=== PATIENT | female | born 1945 | race Caucasian/White ===

== ENCOUNTER 2016-12-02 11:49 | Inpatient (IN) | payer OTHER ==
--- NOTE | ~2016-12-02 | CR63 ---
[facility] A Service of [facility] RADIOLOGY TEXT RESULTS PATIENT: JOSE LOPEZ LOCATION: [facility] : 47 UNIT #: [id number] AGE: [address]: Jalen Garay MD SEX: F ORDER DR: [id number] [facility] [address] [address] [facility]. [place], [place] [address] [id number] MR#: [id number] Acc #: [id number] NAME: JOSE LOPEZ : 1945 SEX: F STUDY DATE/TIME: 12/02/2016 22:33 UNIT: [facility] ROOM: [facility] STUDY DESCRIPTION: CR Chest 2 View Attending Physician: Jalen Garay M.D. Ordering Physician: Saúl Mccarthy M.D. Primary Care Physician: Jalen Garay M.D. MEDICAL IMAGING REPORT This report is preliminary unless electronic signature is present EXAM PA and lateral chest INDICATION Hypoxia, shortness of air, elevated D-dimer x5 days. The patient has a VQ scan today. COMPARISON 07/21/2006 FINDINGS A PA and lateral view of the chest were obtained. There is about 6-7 cm area of abnormal density extending upwards from the left hilum most likely representing pneumonia. The rest of the lungs are clear. Heart size is normal and the bones are unremarkable. IMPRESSION 6-7 cm abnormal density extending upwards from the left hilum most likely representing pneumonia. Followup chest x-ray after treatment is recommended. Dictated by... Saúl Mccarthy M.D. THIS IS AN ELECTRONICALLY VERIFIED REPORT Saúl Mccarthy M.D. at 12/03/2016 3:38 AM ARLENE/hunter TD: 12/03/2016 00:13 JOB #: [id number] [facility] A Service of [facility] RADIOLOGY TEXT RESULTS PATIENT: JOSE LOPEZ LOCATION: [facility] : 47 UNIT #: [id number] AGE: [address]: Jalen Garay MD SEX: F ORDER DR: MEDICAL IMAGING REPORT Page 1 of 1 COPY
--- NOTE | ~2016-12-02 | HP ---
Unit #: [id number] #: [id number] Patient: JOSE LOPEZ [id number] [address] [place], [place] [address] [id number] I MR#: [id number] NAME: JOSE LOPEZ. ROOM: 560 Age: 71 Sex: F Admission Date: 12/02/2016 : 1945 Attending Physician: Jalen Garay M.D. Primary Care Physician: Jalen Garay M.D. HISTORY AND PHYSICAL HISTORY OF PRESENT ILLNESS A 71-year-old white female with a history of osteoporosis, osteoarthritis, coronary artery disease, hyperlipidemia, obstructive sleep apnea syndrome, major depressive disorder, hypertension, seen in the office today with four days of nausea, vomiting, diarrhea, dark urine, feverish, cough, myalgias, chest pain on the left with cough, low back pain. In the office we had trouble getting her O2 sats which seemed to range from 83% to 95% on room air. Her weight was down some seven pounds from her last office visit. Temperature was 99. Blood pressure was 118/70. Her exam was fairly unremarkable except for some rhonchi left upper lobe. She was unable to give us a urine specimen and two-view chest x-ray showed what appeared to be a vague but new left upper lobe infiltrate and the patient is admitted for further evaluation and therapy. She was directly admitted to the hospital. She had a temp here of 100.6 according to the nurse although it is not documented. O2 sats are not documented as well. Her white count is 14.4, D-dimer is 926, sodium is 129, potassium 3.4, GFR is 57.5, amylase and lipase were normal. Urinalysis shows 2+ protein with 5 to 10 RBCs and 5 to 10 hyaline casts. ALLERGIES Aspirin and penicillin. MEDICATIONS PRIOR TO ADMISSION 1. Effexor XR 75 mg daily. 2. Pepcid 40 mg daily. 3. Fosamax 70 mg weekly. 4. Lasix 80 mg daily. 5. Lipitor 40 mg daily. 6. Lisinopril 10 mg daily. 7. Vitamin D 2000 units daily. 8. Coreg 12.5 mg b.i.d. 9. Calcium plus D one p.o. daily. 10. I-Caps one p.o. daily. 11. Multivitamin one p.o. daily. 12. CoQ10 200 mg p.o. daily. PAST MEDICAL HISTORY Again, the patient has a history of coronary artery disease, osteoporosis, osteoarthritis, hypertension, obstructive sleep apnea syndrome, depression, hyperlipidemia, venous insufficiency, chronic kidney disease stage 3. SOCIAL HISTORY Unit #: [id number] #: [id number] Patient: JOSE LOPEZ She is retired, single, nonsmoker, nondrinker, no street drug use, although she does have occasional wine. FAMILY HISTORY Family history is noncontributory. REVIEW OF SYSTEMS Review of systems is otherwise unremarkable. PHYSICAL EXAMINATION VITAL SIGNS: Again, she has a temp of 99 degrees, pulse was 54, O2 sats were sort of all over the place but ranged from 83% to 95%, BMI was 31.5, weight 215 pounds, height 69 inches. HEENT: Unremarkable. NECK: Supple, without JVD, bruits, adenopathy or thyromegaly. CHEST: Rhonchi left upper lobe, otherwise clear to auscultation. HEART: Has a regular rate and rhythm without any murmurs, gallops or rubs. ABDOMEN: Abdomen was soft, nontender and nondistended, with positive bowel sounds and no hepatosplenomegaly. EXTREMITIES: Show no cyanosis, clubbing or edema. GENITOURINARY: Deferred. ANO-RECTAL: Deferred. NEUROLOGIC: Exam is grossly intact. DIAGNOSTIC STUDIES LABORATORY: Values are mentioned above. IMPRESSION 1. Nausea, vomiting and diarrhea of unclear etiology. 2. Dehydration. 3. Hyponatremia. 4. Hypokalemia. 5. Elevated D-dimer. 6. Osteoporosis. 7. Osteoarthritis. 8. Obstructive sleep apnea syndrome. 9. Major depressive disorder. 10. Hyperlipidemia. 11. Coronary artery disease. PLAN 1. N.p.o. except for ice chips 2. CT scan of the abdomen and pelvis without dye. 3. V/Q scan. 4. Magnesium level. 5. Replace potassium and magnesium per protocol. 6. IV Pepcid. 7. IV Zofran p.r.n. 8. IV antibiotics till cultures are back. Blood cultures have been drawn. 9. Bilateral lower extremity SCDs for DVT prophylaxis. 10. Further evaluation pending results of the above. Unit #: [id number] #: [id number] Patient: JOSE LOPEZ Dictated by Jordana Barnes/eulalio TD: 12/02/2016 18:43 JOB #: [id number] HISTORY AND PHYSICAL Page 1 of 1 X Jalen Garay MD X HISTORY AND PHYSICAL
--- NOTE | ~2016-12-02 | CR63 ---
[facility] A Service of [facility] & [facility] RADIOLOGY TEXT RESULTS PATIENT: JOSE LOPEZ LOCATION: [facility] 560-01 : 47 UNIT #: [id number] AGE: [address]: Jalen Garay MD SEX: F ORDER DR: [id number] [facility] [address] [facility]. [place], [place] [address] [id number] I MR#: [id number] Acc #: [id number] NAME: JOSE LOPEZ : 1945 SEX: F STUDY DATE/TIME: 12/05/2016 0959 UNIT: [facility] ROOM: [facility] STUDY DESCRIPTION: CR Chest 2 View Attending Physician: Jalen Garay M.D. Ordering Physician: Jalen Garay M.D. Primary Care Physician: Jalen Garay M.D. MEDICAL IMAGING REPORT This report is preliminary unless electronic signature is present EXAM Chest, 2 views, 12/05/2016, 0959 hours. CLINICAL HISTORY Shortness of air, cough, pneumonia for 1 week. COMPARISON 12/02/2016 FINDINGS Upright PA and lateral views of the chest demonstrate mild cardiomegaly and a mildly tortuous aorta. There is increase in airspace density in the left upper lung with increase or new small left pleural effusion. The right lung is clear. IMPRESSION Left lower lobe airspace density is clearly increased since 11/22/2016 with development of a small left pleural effusion, best seen on the lateral view. Right lung is clear. STAT * RESULT Dictated by... Tamika Malhotra M.D. THIS IS AN ELECTRONICALLY VERIFIED REPORT Tamika Malhotra M.D. at 12/05/2016 12:14 PM RANDY/arnulfo TD: 12/05/2016 10:45 JOB #: [id number] [facility] A Service of [facility] & [facility] RADIOLOGY TEXT RESULTS PATIENT: JOES LOPEZ LOCATION: [facility] 560-01 : 47 UNIT #: [id number] AGE: [address]: Jalen Garay MD SEX: F ORDER DR: MEDICAL IMAGING REPORT Page 1 of 1 COPY
--- NOTE | ~2016-12-02 | NM69 ---
[facility] A Service of [facility] & [facility] RADIOLOGY TEXT RESULTS PATIENT: JOSE LOPEZ LOCATION: [facility] 560-01 : 47 UNIT #: [id number] AGE: [address]: Jalen Garay MD SEX: F ORDER DR: [id number] [facility] [address] [place] [facility]. [place], [place] [address] [id number] I MR#: [id number] Acc #: [id number] NAME: JOSE LOPEZ. : 1945 SEX: F STUDY DATE/TIME: 12/02/2016 21:44 UNIT: [facility] ROOM: [facility] STUDY DESCRIPTION: NM Pulm Vent and Perf Attending Physician: Jalen Garay M.D. Ordering Physician: Jalen Garay M.D. Primary Care Physician: Jalen Garay M.D. MEDICAL IMAGING REPORT This report is preliminary unless electronic signature is present REVISED REPORT SEE ADDENDUM EXAM Ventilation-perfusion study of the lungs INDICATIONS Hypoxia today with elevated D-dimer. Coughing spells. There is a comparison chest x-ray done the same day. FINDINGS The ventilation study was done with 32.7 mCi of Tc-99m DTPA in aerosol form and the perfusion study was done with 5.2 mCi of Tc-99m MAA. The ventilation-perfusion images show matched decreased ventilation and perfusion in the left upper lobe, and there is a soft tissue density in that region on the chest x-ray extending upwards from the hilum that measures about 6.5 cm in diameter. The appearance suggests that this is a left upper lobe pneumonia. The rest of the ventilation-perfusion study is normal. This area was clear January 22, [address] scan. IMPRESSION 1. There is a matched ventilation-perfusion defect in the left upper lobe corresponding with abnormal density seen on the chest x-ray. This region of lung was clear on 01/22/16. This most likely represents a pneumonia and clinical correlation is recommended. A mass cannot be completely excluded and I would suggest followup chest x-ray after treatment to show resolution. 2. The rest of the study is normal and this indicates a low probability for pulmonary embolus. [facility] A Service of [facility] & [facility] RADIOLOGY TEXT RESULTS PATIENT: JOSE LOPEZ LOCATION: [facility] 560-01 : 47 UNIT #: [id number] AGE: [address]: Jalen Garay MD SEX: F ORDER DR: Dictated by... Saúl Mccarthy M.D. THIS IS AN ELECTRONICALLY VERIFIED REPORT Saúl Mccarthy M.D. at 12/03/2016 3:38 AM FEL/psc TD: 12/03/2016 00:37 JOB #: [id number] ADDENDUM REPORT ADDENDUM The patient has had symptoms for 5 days, not 1 day. Dictated by... Saúl Mccarthy M.D. THIS IS AN ELECTRONICALLY VERIFIED REPORT Saúl Mccarthy M.D. at 12/05/2016 1:55 PM FEL/ljd TD: 12/03/2016 00:17 JOB #: [id number] CC: Oliver/tasha Please Delete MEDICAL IMAGING REPORT Page 1 of 1 COPY
--- NOTE | ~2016-12-02 | DS ---
Unit #: [id number] #: [id number] Patient: JOSE LOPEZ [id number] [address] [address] [id number] I MR#: [id number] NAME: JOSE LOPEZ. ROOM: 560 Age: 71 Sex: F Admission Date: 12/02/2016 : 1945 Discharge Date: 12/07/2016 Attending Physician: Jalen Garay M.D. Primary Care Physician: Jalen Garay M.D. DISCHARGE SUMMARY PRINCIPAL DISCHARGE DIAGNOSES 1. Acute hypoxic respiratory failure. 2. Community-acquired pneumonia, left upper lobe. 3. Coronary artery disease. 4. Hyperlipidemia. 5. Major depressive disorder. 6. Osteoporosis. 7. Osteoarthritis. 8. Left ventricular dysfunction. 9. Hyponatremia. 10. Hypokalemia. 11. Acute kidney injury. PROCEDURES Midline placement 12/02/16. REASON FOR HOSPITALIZATION The patient is a 71-year-old white female who presented to the office with nausea, vomiting, diarrhea, hypoxemia. Upon further evaluation, was found to have a left upper lobe infiltrate on chest x-ray in the office. Her O2 sats were 83% to 95% on room air. She had lost seven pounds on a previous visit. Temperature was 99, blood pressure 118/70 when the patient was admitted. After the patient was admitted, her white count here was 14.4, D-dimer was 926, sodium 129, potassium 3.4, GFR 57.5. Amylase and lipase were normal. Urinalysis - 2+ protein with 5-10 RBCs and 5-10 hyaline casts. The patient had bilateral SCDs placed. She underwent V/Q scan because of the renal dysfunction which was a low probability for PE. Repeat chest x-ray again showed a left upper lobe pneumonia. She was placed on Zithromax, Rocephin and IV steroids. Blood cultures - no growth. Urine culture - no growth. Potassium replaced. IV fluids started for rehydration and replacement of potassium. Urine for legionella and streptococcal antigen is negative. The patient rapidly improved. Currently, her O2 sats range from 92 to 98% over the past 24 hours off her O2. Her CBC yesterday was completely normal except for a hemoglobin of 10.9. Her BMP yesterday was normal except for a blood sugar of 151. At this point, she is tolerating a regular diet. She is afebrile. Vital signs are stable. Discharged home. Office visit in one week. Healthy heart diet. CURRENT MEDICATIONS 1. Tylenol 650 p.o. q.6 hours p.r.n. for pain or fever. 2. Effexor XR 75 mg daily. 3. Coreg 12.5 mg p.o. b.i.d. 4. Lasix 80 mg p.o. daily. Unit #: [id number] #: [id number] Patient: JOSE LOPEZ 5. Omnicef 300 mg p.o. b.i.d. for an additional five days. 6. Lipitor 40 mg p.o. daily. 7. Lisinopril 10 mg p.o. daily. 8. Pepcid 40 mg p.o. daily. 9. Fosamax 70 mg p.o. weekly. 10. Co Q-10 200 mg p.o. daily. 11. I-Caps, one p.o. daily. 12. Multivitamins, one p.o. daily. 13. Calcium plus D, one p.o. daily. 14. Z-Dangelo, use as directed, dispense #1. 15. Vitamin D 2000 units daily. 16. Prednisone 20 mg p.o. b.i.d. for five days. She will eventually need to have a followup chest x-ray in about six weeks to ensure resolution of the left upper lobe infiltrate. Dictated by... Jalen Garay M.D. NACHO/tomasz TD: 12/09/2016 07:50 JOB #: [id number] DISCHARGE SUMMARY Page 1 of 1 X Jalen Garay MD X DISCHARGE SUMMARY
--- NOTE | ~2016-12-02 | CT4 ---
[facility] A Service of [facility] & [facility] RADIOLOGY TEXT RESULTS PATIENT: JOSE LOPEZ LOCATION: [facility] 560-01 : 47 UNIT #: [id number] AGE: [address]: Jalen Garay MD SEX: F ORDER DR: [id number] [facility] [address] [place], [place] [address] [id number] I MR#: [id number] Acc #: [id number] NAME: JOSE LOPEZ : 1945 SEX: F STUDY DATE/TIME: 12/02/2016 19:28 UNIT: [facility] ROOM: [facility] STUDY DESCRIPTION: CT Abd and Pelv Wo Cont Attending Physician: Jalen Garay M.D. Ordering Physician: Jalen Garay M.D. Primary Care Physician: Jalen Garay M.D. MEDICAL IMAGING REPORT This report is preliminary unless electronic signature is present EXAM CT abdomen and pelvis without contrast, 12/02/2016 1928 hours HISTORY 71-year-old woman with nausea and diarrhea for [address] abdomen and pelvis, 03/04/[address] exam was performed with one or more of the following radiation dose reduction techniques: Automatic exposure control, adjustment of mA and/or kV according to patient size, and iterative reconstruction. FINDINGS Images through the lung bases are clear. There is a very small hiatal hernia slightly increased from 03/04/2012. There is trace left pleural effusion, which is new. Images through the abdomen demonstrate no change in a cyst in the medial segment left lobe of the liver. Liver is normal in size. The spleen is normal. Pancreas, bile ducts are normal. There is no gallstone or gallbladder wall thickening. The adrenal glands are normal. The kidneys demonstrate no mass or stone. Tiny cyst in the lower-pole left kidney seen on prior contrasted CT is difficult to see on this noncontrasted exam. There is no ureterectasis or ureteral calculus. There are pelvic phleboliths present. The stomach is contracted but normal in appearance. There is no small bowel distension or small bowel wall thickening. The terminal ileum and cecum are normal. There is no evidence of appendicitis. There are colonic diverticula present in the descending colon and numerous diverticula in the sigmoid colon without wall thickening or inflammation. [facility] A Service of [facility] & [facility] RADIOLOGY TEXT RESULTS PATIENT: JOSE LOPEZ LOCATION: [facility] 560-01 : [birth year] UNIT #: [id number] AGE: [address]: Jalen Garay MD SEX: F ORDER DR: The bladder is normal. The uterus is surgically absent. I do not discriminate ovaries. IMPRESSION 1. Trace left pleural effusion, new from 2012. 2. Stable liver cyst. 3. Gallbladder and bile ducts are normal, as is the pancreas. 4. Colonic diverticulosis in the descending colon and sigmoid colon without evidence of wall thickening or inflammation. There is no small bowel distension. No evidence of appendicitis. 5. No renal or ureteral calculi. 6. Degenerative disc disease at L5-S1, similar to 2012. Dictated by... Tamika Malhotra M.D. THIS IS AN ELECTRONICALLY VERIFIED REPORT Tamika Malhotra M.D. at 12/03/2016 9:34 AM RANDY/jannette TD: 12/02/2016 22:50 JOB #: [id number] MEDICAL IMAGING REPORT Page 1 of 1 COPY
[~2016-12-02 11:49] MED LIST: BACTRIM DS TABL1 TA1; CALCIUM +D & M1 EACH PO; CALCIUM 500 + D1 TAB PO; EFFEXOR XR PO; EFFEXOR-XR150 MG PO; FOSAMAX PO; FOSAMAX70 MG PO; GLUCOSAMINE CHOND; ICAPS MV TAB1 TAB.EC PO; KEFLEX PO; LORTAB 7.5-5001 TAB PO; MAXZIDE 75/50 T1 TA1 PO; MAXZIDE 75/50 T1 TAB PO; MIRALAX17 G1 PO; MULTI-VIT/MIN P1 TAB PO; MULTIPLE VITAMIN; PERCOCET5/325 PO; STOOL SOFTENER; TOPROL XL PO
[2016-12-02 14:05] LABS: HEMATOCRIT 36.3 % (35.0-45.0); HEMOGLOBIN 12.1 gm/dL (12.0-16.0); MEAN CELL VOLUME 93.6 FL (83-96); MEAN CORPUSCULAR HEMOGLOBIN 31.2 PG (28-34); MEAN CORPUSCULAR HGB CONC 33.3 g/dL (30-36); MEAN PLATELET VOLUME 9.2 FL (6.5-11.5); RED BLOOD COUNT 3.87 X10e (3.90-5.30); RED CELL DISTRIBUTION WIDTH 13.5 % (11.0-15.5); WHITE BLOOD COUNT 14.4 X10e3 (4.0-10.5)
[2016-12-02] MEDS ORDERED: EFFEXOR75 M3 PO (14:09)
[2016-12-02] MEDS ORDERED: PEPCID40 MG PO (14:10)
[2016-12-02] MEDS ORDERED: FOSAMAX70 MG PO (14:10)
[2016-12-02] MEDS ORDERED: LASIX80 MG PO (14:11)
[2016-12-02] MEDS ORDERED: LIPITOR40 MG PO (14:13)
[2016-12-02] MEDS ORDERED: LISINOPRIL10 MG PO (14:14)
[2016-12-02] MEDS ORDERED: VITAMIN D2000 UNIT PO (14:15)
[2016-12-02] MEDS ORDERED: COREG12.5 MG PO (14:15)
[2016-12-02] MEDS ORDERED: CALCIUM + D SO1 EACH PO (14:16)
[2016-12-02] MEDS ORDERED: ICAPS MV TABLE1 EACH PO (14:17)
[2016-12-02] MEDS ORDERED: MULTI VITAMIN1 EACH PO (14:20)
[2016-12-02] MEDS ORDERED: CO Q-10200 MG PO (14:20)
[2016-12-02 14:35] LABS: ALBUMIN SERUM 3.5 g/dL (3.5-5.0); BILIRUBIN,TOTAL 0.9 mg/dL (0.2-2.0); CALCIUM SERUM 8.4 mg/dL (8.4-10.2); GLOM FILT RATE Estimated 57.5 mL/min (>60); POTASSIUM 3.4 mmol/L (3.5-5.1); PROTEIN TOTAL SERUM 7.1 g/dL (6.0-8.3)
[2016-12-02 14:49] LABS: PROCALCITONIN 0.07 NG/ML
[2016-12-02 16:02] LABS: URINE APPEARANCE CLEAR; URINE BILIRUBIN NEG (NEG); URINE BLOOD NEG (NEG); URINE COLOR DK YELLOW; URINE GLUCOSE NEG (NEG); URINE KETONE 1+ (NEG); URINE LEUKOCYTE ESTERASE NEG (NEG); URINE NITRATE NEG (NEG); URINE PROTEIN 2+ (NEG); URINE SPECIFIC GRAVITY 1.023 (1.003-1.035)
[2016-12-02 16:03] LABS: URINE BACTERIA AUWI NEG (NEGATIVE); URINE SQUAMOUS EPITHELIAL CELL OCC /[HPF]
[2016-12-03 05:30] LABS: HEMATOCRIT 34.2 % (35.0-45.0); HEMOGLOBIN 11.5 gm/dL (12.0-16.0); MEAN CELL VOLUME 93.4 FL (83-96); MEAN CORPUSCULAR HEMOGLOBIN 31.4 PG (28-34); MEAN CORPUSCULAR HGB CONC 33.7 g/dL (30-36); MEAN PLATELET VOLUME 9.9 FL (6.5-11.5); RED BLOOD COUNT 3.66 X10e (3.90-5.30); RED CELL DISTRIBUTION WIDTH 13.4 % (11.0-15.5); WHITE BLOOD COUNT 11.6 X10e3 (4.0-10.5)
[2016-12-03 06:12] LABS: CALCIUM SERUM 8.1 mg/dL (8.4-10.2); CREATININE SERUM 0.8 mg/dL (0.6-1.4); GLOM FILT RATE Estimated 75.3 mL/min (>60); MAGNESIUM 2.3 mg/dL (1.6-3.0); POTASSIUM 3.9 mmol/L (3.5-5.1)
[2016-12-04 08:00] LABS: HEMOGLOBIN 10.9 gm/dL (12.0-16.0); MEAN CELL VOLUME 93.4 FL (83-96); MEAN CORPUSCULAR HEMOGLOBIN 30.9 PG (28-34); MEAN CORPUSCULAR HGB CONC 33.1 g/dL (30-36); MEAN PLATELET VOLUME 9.7 FL (6.5-11.5); RED BLOOD COUNT 3.53 X10e (3.90-5.30); RED CELL DISTRIBUTION WIDTH 13.4 % (11.0-15.5); WHITE BLOOD COUNT 9.4 X10e3 (4.0-10.5)
[2016-12-04 08:25] LABS: CALCIUM SERUM 7.7 mg/dL (8.4-10.2); CREATININE SERUM 0.8 mg/dL (0.6-1.4); GLOM FILT RATE Estimated 75.3 mL/min (>60); POTASSIUM 3.4 mmol/L (3.5-5.1)
[2016-12-05 06:06] LABS: HEMATOCRIT 31.6 % (35.0-45.0); HEMOGLOBIN 10.6 gm/dL (12.0-16.0); MEAN CELL VOLUME 93.2 FL (83-96); MEAN CORPUSCULAR HEMOGLOBIN 31.2 PG (28-34); MEAN CORPUSCULAR HGB CONC 33.5 g/dL (30-36); MEAN PLATELET VOLUME 9.5 FL (6.5-11.5); RED BLOOD COUNT 3.39 X10e (3.90-5.30); RED CELL DISTRIBUTION WIDTH 13.5 % (11.0-15.5); WHITE BLOOD COUNT 6.8 X10e3 (4.0-10.5)
[2016-12-05 06:51] LABS: BUN/CREATININE RATIO 7.5; CREATININE SERUM 0.8 mg/dL (0.6-1.4); GLOM FILT RATE Estimated 75.3 mL/min (>60); POTASSIUM 3.9 mmol/L (3.5-5.1)
[2016-12-05 11:32] LABS: LEGIONELLA AG URINE NEG (NEG)
[2016-12-06 07:40] LABS: BASOPHIL% 0.1 % (0-2.5); EOSINOPHIL% 0.1 % (0.0-7.0); HEMATOCRIT 33.4 % (35.0-45.0); HEMOGLOBIN 10.9 gm/dL (12.0-16.0); LYMPHOCYTE# 0.5 X10e3 (1.0-3.5); LYMPHOCYTE% 9.7 % (17.0-45.0); MEAN CELL VOLUME 93.1 FL (83-96); MEAN CORPUSCULAR HEMOGLOBIN 30.5 PG (28-34); MEAN CORPUSCULAR HGB CONC 32.7 g/dL (30-36); MEAN PLATELET VOLUME 9.6 FL (6.5-11.5); MONOCYTE# 0.1 X10e3 (0-1.0); MONOCYTE% 2.1 % (3.0-12.0); NEUTROPHIL# 4.2 X10e3 (1.5-7.1); PLATELET COUNT 251 X10e3 (140-420); RED BLOOD COUNT 3.58 X10e (3.90-5.30); RED CELL DISTRIBUTION WIDTH 13.3 % (11.0-15.5); WHITE BLOOD COUNT 4.8 X10e3 (4.0-10.5)
[2016-12-06 07:42] LABS: DIFF IND NO
[2016-12-06 08:18] LABS: BUN/CREATININE RATIO 15.71; CALCIUM SERUM 8.5 mg/dL (8.4-10.2); CREATININE SERUM 0.7 mg/dL (0.6-1.4); GLOM FILT RATE Estimated 88.4 mL/min (>60); POTASSIUM 3.9 mmol/L (3.5-5.1)
[2016-12-07] MEDS ORDERED: ZITHROMAX1 GM (12:02)
[2016-12-07] MEDS ORDERED: OMNICEF300 M1 PO (12:02)
[2016-12-07] MEDS ORDERED: PREDNISONE PO (12:03)
[2016-12-07] MEDS ORDERED: ACETAMINOPHEN650 M1 PO (12:04)
== END 2016-12-07 13:36 | disposition home or self-care (01) | DRG 193 ==
LOC: C5B 11:49 → UNDOADMOB 13:20 → C5B 13:20
PROVIDERS: Internal Medicine
PROC: 05H533Z Insertion of Infusion Device into Right Subclavian Vein, Percutaneous Approach (ICD-10-PCS; principal; 2016-12-02)
DX: J18.9 Pneumonia, unspecified organism (principal); J96.01 Acute respiratory failure with hypoxia; E87.1 Hypo-osmolality and hyponatremia; Z88.6 Allergy status to analgesic agent; Z88.0 Allergy status to penicillin; I25.10 Atherosclerotic heart disease of native coronary artery without angina pectoris; M81.0 Age-related osteoporosis without current pathological fracture; M19.90 Unspecified osteoarthritis, unspecified site; G47.33 Obstructive sleep apnea (adult) (pediatric); F32.9 Major depressive disorder, single episode, unspecified; E78.5 Hyperlipidemia, unspecified; I12.9 Hypertensive chronic kidney disease with stage 1 through stage 4 chronic kidney disease, or unspecified chronic kidney disease; N18.3 Chronic kidney disease, stage 3 (moderate); E86.0 Dehydration; E87.6 Hypokalemia; I87.2 Venous insufficiency (chronic) (peripheral)
CPT/HCPCS: 71020; 74176; 78582; 80048; 80053; 81003; 82150; 82308; 83690; 83735; 84132; 85025; 85027; 85379; 87040; 87086; 87449; 87899; 94760; A9540; A9567; J0456; J0696; J1650; J2405; J2930

== ENCOUNTER → 2016-12-15 | Outpatient (CLI) | payer OTHER ==
[~2016-12-15] MED LIST changes: +ACETAMINOPHEN650 M1 PO; +CALCIUM + D SO1 EACH PO; +CO Q-10200 MG PO; +COREG12.5 MG PO; +EFFEXOR75 M3 PO; +ICAPS MV TABLE1 EACH PO; +LASIX80 MG PO; +LIPITOR40 MG PO; +LISINOPRIL10 MG PO; +MULTI VITAMIN1 EACH PO; +OMNICEF300 M1 PO; +PEPCID40 MG PO; +PREDNISONE PO; +VITAMIN D2000 UNIT PO; +XARELTO10 MG; +XARELTO20 MG PO; +ZITHROMAX1 GM
--- NOTE | ~2016-12-15 | MY29 ---
[facility] A Service of [facility] RADIOLOGY TEXT RESULTS PATIENT: JOSE LOPEZ LOCATION: [facility] : 47 UNIT #: [id number] AGE: [address]: Jalen Garay MD SEX: F ORDER DR: [id number] [facility] [address] [place], [place] [address] [id number] MR#: [id number] Acc #: [id number] NAME: JOSE LOPEZ : 1945 SEX: F STUDY DATE/TIME: 12/15/2016 15:19 UNIT: [facility] ROOM: STUDY DESCRIPTION: MY JENNIFER SCREENING W/ CAD BILAT Attending Physician: Jalen Garay M.D. Ordering Physician: Jalen Garay M.D. Primary Care Physician: Jalen Garay M.D. MEDICAL IMAGING REPORT This report is preliminary unless electronic signature is present EXAM Digital screening mammogram, 12/15/2016. HISTORY A 71-year-old woman, positive family history, mother age 70. Annual screening. COMPARISON STUDIES Mammograms date to 09/16/2005 with most recent 08/24/2015. FINDINGS Digital imaging of each breast was completed utilizing screening protocol. Review includes FDA-approved CAD device. Breast parenchyma is partially fatty replaced and mildly heterogeneous. Subareolar duct prominence is again noted bilaterally. Mild parenchymal dominance middle third right breast is stable. I see no suspicious mass characteristics. There are no interval occurring microcalcifications and no architectural deformity. IMPRESSION Negative mammogram. Annual screening recommended. BIRADS 1. Patients over the age of 40 are entered into a reminder system with target due date for the next mammogram. A result letter will also be sent to the patient. BIRADS: 1 Negative Dictated by... Elier Bennett M.D. THIS IS AN ELECTRONICALLY VERIFIED REPORT [facility] A Service of [facility] & [facility] RADIOLOGY TEXT RESULTS PATIENT: JOSE LOPEZ LOCATION: [facility] : 49 UNIT #: [id number] AGE: [address]: Jalen Garay MD SEX: F ORDER DR: Elier Bennett M.D. at 12/16/2016 8:10 AM LILIBETH/abiodun TD: 12/15/2016 23:27 JOB #: [id number] MEDICAL IMAGING REPORT Page 1 of 1 COPY
== END | disposition home or self-care (01) ==
LOC: CWCC 12-02 10:00
DX: Z12.31 Encounter for screening mammogram for malignant neoplasm of breast (principal); Z80.3 Family history of malignant neoplasm of breast
CPT/HCPCS: G0202

== ENCOUNTER 2016-12-21 10:43 | Inpatient (IN) | payer OTHER ==
--- NOTE | ~2016-12-21 | EKG ---
PATIENT: JOSE LOPEZ UNIT #: [id number] Ventricular Rate: 97 BPM Atrial Rate: 97 BPM P-R Interval: 146 ms QRS Duration: 90 ms Q-T Interval: 356 ms QTC Calculation(Bezet): 452 ms P [place]: 68 degrees Calculated R [place]: 104 degrees Calculated T [place]: 70 degrees Diagnosis Line: Sinus rhythm with Premature atrial complexes Diagnosis Line: Rightward axis Diagnosis Line: Low voltage QRS Diagnosis Line: Borderline ECG Diagnosis Line: When compared with ECG of 13-OCT-2011 12:44, Diagnosis Line: Premature atrial complexes are now Present Diagnosis Line: Vent. rate has increased BY 34 BPM Diagnosis Line: Questionable change in QRS axis Diagnosis Line: Confirmed by JOSY CARLSON MD ([id number]) on 12/24/2016 Diagnosis Line: 2:50:57 PM INTERPRETING MD: ALDO TAYLOR
--- NOTE | ~2016-12-21 | US84 ---
[id number] [facility] [address] [place], [place] [address] [id number] I MR#: [id number] Acc #: [id number] NAME: JOSE LOPEZ : 1945 SEX: F STUDY DATE/TIME: 12/22/2016 9:59 UNIT: C3A PCU ROOM: 306 STUDY DESCRIPTION: US LE Veins Complete Michael Stdy Attending Physician: Jalen Garay M.D. Ordering Physician: Jalen Garay M.D. Primary Care Physician: Jalen Garay M.D. MEDICAL IMAGING REPORT This report is preliminary unless electronic signature is present EXAM Bilateral lower extremity venous ultrasound 12/22/2016 HISTORY Currently, he takes blood thinners. No history of DVT in legs. Bilateral leg swelling for years. Worsening x2 weeks. TECHNIQUE Venous ultrasound examination of both lower extremities was performed using grayscale, spectral Doppler and color flow Doppler imaging. FINDINGS The examination is negative. There is no evidence of deep venous thrombus from the groin to the lower calf bilaterally. Visualized greater saphenous veins are also patent. In the left popliteal fossa, there is a fluid collection measuring 5.9 cm x 2.78 cm x 5.38 cm. Most consistent with synovial/Rosen's cyst. Clinical followup recommended. IMPRESSION No evidence of lower extremity deep venous thrombosis. See incidental finding in report above. Dictated by... Rober Whaley M.D. THIS IS AN ELECTRONICALLY VERIFIED REPORT Rober Whaley M.D. at 12/24/2016 11:34 AM COURTNEY/arti TD: 12/22/2016 19:51 JOB #: [id number] MEDICAL IMAGING REPORT Page 1 of 1 COPY
--- NOTE | ~2016-12-21 | DS ---
Unit #: [id number] #: [id number] Patient: JOSE LOPEZ [id number] [address] [address] [id number] I MR#: [id number] NAME: JOSE LOPEZ. ROOM: 306 Age: 71 Sex: F Admission Date: 12/21/2016 : 1945 Discharge Date: 12/25/2016 Attending Physician: Jalen Garay M.D. Primary Care Physician: Jalen Graay M.D. DISCHARGE SUMMARY PRINCIPAL DISCHARGE DIAGNOSES 1. Acute bilateral pulmonary emboli. 2. Recent left upper lobe community acquired pneumonia. 3. Coronary artery disease. 4. Chronic kidney disease stage 3. 5. Mild normocytic and normochromic anemia. 6. Osteoporosis. 7. Hypertension. 8. Hyperlipidemia. 9. Major depressive disorder. PROCEDURES None. CONSULTANTS None. REASON FOR HOSPITALIZATION The patient is a 71-year-old white female who was recently here 12/02/2016 to 12/07/2016 with community acquired pneumonia, left upper lobe. On that admission she had a V/Q scan that showed low probability for PE. She was placed on Lovenox and SCDs for DVT prophylaxis, especially given the patient's history of venous insufficiency. In any case, she was stabilized, discharged home on oral antibiotics and prednisone. Seen back in the office doing well. Hypoxemia had resolved. She then on the morning admission began having pleuritic chest pain right greater than left radiating into her shoulder on the right with shortness of air. Arrived in the emergency room, normal vital signs, O2 sat 96%, cardiac enzymes normal. Hemoglobin 11.8, platelets were normal, GFR was 57. Chest x-ray revealed no left upper lobe infiltrate, which is essentially resolved. CT angiogram of the chest showed multiple PEs, right-sided burden greater than left and she was admitted for further evaluation and therapy. It should be noted on her CT scan there was some residual pneumonia in the left upper lobe, as well as the right posterolateral base. In any case, she was admitted and placed on Lovenox, placed at bedrest, gently hydrated but with normal saline because of her renal insufficiency. Hemoglobin and GFR were followed. 2D echo with Doppler was ordered, as well as stat bilateral lower extremity venous Dopplers. Options for oral anticoagulants were discussed with the patient. Hemoglobin remained fairly stable and on the day of discharge was 10.3. Bilateral lower extremity venous Doppler showed no evidence of deep vein thrombosis. 2D echo showed mild to moderate tricuspid regurgitation and slightly elevated right ventricular systolic pressure but was otherwise normal. Patient had no further symptoms. Her chest pain was improving. Unit #: [id number] #: [id number] Patient: JOSE LOPEZ She was no longer hypoxic. Room air O2 sats were 93 to 98% over the last 24 hours. We discussed oral anticoagulant therapy. She was given a prescription for Xarelto, which is ran through her insurance and she stated she could afford it. She was given two doses of 15 mg b.i.d. while here and tolerated it well. Discharged home with a start pack for the first month and then 20 mg daily thereafter. She is on a healthy heart diet as tolerates. OTHER MEDICATIONS AT TIME OF DISCHARGE 1. Effexor XR 75 mg daily. 2. Pepcid 40 mg daily. 3. Fosamax 70 mg weekly. 4. Lasix 80 mg daily. 5. Lipitor 40 mg daily. 6. Lisinopril 10 mg daily. 7. Vitamin D 2,000 units daily. 8. Coreg cut down from 12.5 to 6.25 mg b.i.d. 9. Calcium plus D1 tablet daily. 10. I-caps 1 daily. 11. Multivitamins daily. 12. Co Q-10 200 mg daily. 13. Imdur ER 30 mg daily was also discontinued during this admission because of relatively low blood pressures and no history of angina. FOLLOWUP She will followup in the office in one week with a BMP to recheck her GFR which has been normal ever since she was hydrated early during this admission, as well as her CBC for a followup of her hemoglobin. She was told to call in the meantime for any worsening symptoms of bleeding diatheses. Please note: The patient should be on oral anticoagulants for at least a six month period and then be reassessed for further risk at that time. Dictated by... Jalen Garay M.D. NACHO/keagan TD: 12/26/2016 08:50 JOB #: [id number] DISCHARGE SUMMARY Page 1 of 1 X Jalen Garay MD DISCHARGE SUMMARY
--- NOTE | ~2016-12-21 | CR63 ---
[facility] A Service of [facility] & [facility] RADIOLOGY TEXT RESULTS PATIENT: JOSE LOPEZ LOCATION: [facility] 306-01 : [birth year] UNIT #: [id number] AGE: [address]: Jalen Garay MD SEX: F ORDER DR: [id number] [facility] [address] [place], [place] [address] [id number] I MR#: [id number] Acc #: [id number] NAME: JOSE LOPEZ : 1945 SEX: F STUDY DATE/TIME: 12/21/2016 11:32 UNIT: [address] ROOM: [facility] STUDY DESCRIPTION: CR Chest 2 View Attending Physician: Jalen Garay M.D. Ordering Physician: Ed Cj Saravia M.D. Primary Care Physician: Jalen Garay M.D. MEDICAL IMAGING REPORT This report is preliminary unless electronic signature is present EXAM PA and lateral chest 2 views, 12/21/2016 COMPARISON Chest radiograph 12/05/2016 HISTORY Short of air for 2 days. FINDINGS There is no consolidation or effusion or pneumothorax. Left upper lobe consolidation seen on the exam of December 05, 2016 has resolved with some linear scarring. No acute abnormality. Dictated by... Janes Foss M.D. THIS IS AN ELECTRONICALLY VERIFIED REPORT Janes Foss M.D. at 12/22/2016 10:54 AM IRA/hunter TD: 12/21/2016 21:47 JOB #: [id number] MEDICAL IMAGING REPORT Page 1 of 1 COPY
--- NOTE | ~2016-12-21 | HP ---
Unit #: [id number] #: [id number] Patient: JOSE LOPEZ [id number] [address] [place], [place] [address] [id number] MR#: [id number] NAME: JOSE LOPEZ. ROOM: 306 Age: 71 Sex: F Admission Date: 12/21/2016 : 1945 Attending Physician: Jalen Garay M.D. Primary Care Physician: Jalen Garay M.D. HISTORY AND PHYSICAL HISTORY OF PRESENT ILLNESS The patient is a 71-year-old white female who was here recently 12/02 to 12/07 with community-acquired pneumonia, left upper lobe. At that time, she had a V/Q scan that showed low probability for PE. She was treated with Lovenox and SCDs during that admission for prevention of deep vein thrombosis. In any case, she was discharged home on oral antibiotics and prednisone, seen back in the office, doing well. Hypoxemia had resolved. She then began having pleuritic chest pain, more on the right than the left, radiating to the shoulder with shortness of air. Arrived in the emergency room afebrile, with normal vital signs. Room air O2 sat 96%. Cardiac enzymes normal. White count 10.8, hemoglobin 11.8. Platelets were normal. GFR was 57. Chest x-ray revealed the left upper lobe infiltrate to be essentially resolved. CT angiogram of the chest showed multiple PEs, right greater than left, and the patient was admitted for anticoagulation and further evaluation. The patient has no other complaints at this time. No fever, no cough, no change in bowel or bladder habits. She does have a history of venous insufficiency which is likely part of the issue with a PE, especially with her recent hospitalization and acute illness. In any case, the patient has been anticoagulated overnight, started on some IV fluids because of her depressed GFR and CT angiogram. She was also given Percocet p.r.n. for pain. ALLERGIES She has stated allergies to aspirin and penicillin. MEDICATIONS Her medications prior to admission: 1. Effexor XR 75 mg daily. 2. Pepcid 40 mg daily. 3. Fosamax 70 mg weekly. 4. Lasix 80 mg daily. 5. Lipitor 40 mg daily. 6. Lisinopril 10 mg daily. 7. Vitamin D 2000 units daily. 8. Coreg 12.5 mg b.i.d. 9. Calcium plus D, one daily. 10. ICaps, one daily. 11. Multivitamins daily. 12. Co Q-10 200 mg daily. 13. Imdur ER 30 mg q. h.s. PAST MEDICAL HISTORY 1. Coronary artery disease. Unit #: [id number] #: [id number] Patient: JOSE LOPEZ 2. Osteoporosis. 3. Osteoarthritis. 4. Hypertension. 5. Obstructive sleep apnea syndrome. 6. Depression. 7. Hyperlipidemia. 8. Venous insufficiency. 9. Chronic kidney disease stage 3. 10. Left ventricular dysfunction. SURGICAL HISTORY 1. Hysterectomy. 2. Tonsillectomy. 3. Bladder repair. 4. Right axillary abscess. 5. 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 6. Varicose vein stripping. SOCIAL HISTORY Single, no children. Retired. Nonsmoker, rare alcohol use, no street drug use. FAMILY HISTORY Noncontributory. No significant family history for deep vein thrombosis or PEs. PHYSICAL EXAMINATION GENERAL: She is awake, alert, oriented x3, in no acute distress. VITAL SIGNS: Temp 98.6, pulse 83, respirations 16, blood pressure 127/77. O2 sat 96% on room air. HEENT: Unremarkable except for nasal cannula in place. NECK: Supple without JVD, bruits, adenopathy or thyromegaly. CHEST: Clear to auscultation. HEART: Regular rate and rhythm without any murmurs, rubs or gallops. ABDOMEN: Soft, nondistended, nontender with positive bowel sounds and no hepatosplenomegaly. EXTREMITIES: No clubbing, cyanosis or edema. She has no palpable cords or Homans sign in either lower extremity. /RECTAL: Deferred. NEUROLOGICAL: Grossly intact. DIAGNOSTIC STUDIES LABORATORY: White count was 10.8 with a left shift. Hemoglobin 11.8 with normal indices. Platelets are 253,000. CMP is normal except for a GFR of 57.5 and an indirect bilirubin of 1.2. Cardiac enzymes normal x2 sets. IMAGING: Two view chest x-ray - left upper lobe consolidation seen on prior exam December 05, 2016, resolved with some linear scarring. No acute abnormalities. CT angiogram of the chest - positive for small to moderate embolus right lower lobe, right upper lobe and some left lung branches as well. There is also a left upper lobe and right posterolateral basilar infiltrate or atelectasis. No effusion or pneumothorax noted. Unit #: [id number] #: [id number] Patient: JOSE LOPEZ CARDIOVASCULAR: EKG shows a sinus rhythm with PACs, right axis deviation, low voltage QRS. IMPRESSION 1. Multiple pulmonary emboli right factor, recent hospitalization, recent acute illness, chronic venous stasis insufficiency. 2. Recent left upper lobe community-acquired pneumonia. 3. Coronary artery disease. 4. Left ventricular dysfunction. 5. Chronic kidney disease stage 3. 6. Osteoporosis. 7. Hypertension. 8. Hyperlipidemia. 9. Major depressive disorder. PLAN Anticoagulate with full dose Lovenox. Hydrate gently with normal saline. Recheck GFR. Following hemoglobin. 2D echo with Doppler. Stat bilateral lower extremity venous Doppler. Further evaluation pending results of the above. Hopefully, she can be switched to oral anticoagulants and discharged home in the next couple of days. Dictated by Jalen Garay M.D. NACHO/tomasz TD: 12/22/2016 08:50 JOB #: [id number] HISTORY AND PHYSICAL Page 1 of 1 X Jalen Garay MD X HISTORY AND PHYSICAL
--- NOTE | ~2016-12-21 | CT16 ---
[facility] A Service of [facility] & [facility] RADIOLOGY TEXT RESULTS PATIENT: JOSE LOPEZ LOCATION: [facility] 306- : [birth year] UNIT #: [id number] AGE: [address]: Jalen Garay MD SEX: F ORDER DR: [id number] [facility] [address]. [place], [place] [address] [id number] I MR#: [id number] Acc #: [id number] NAME: JOSE LOPEZ : 1945 SEX: F STUDY DATE/TIME: 12/21/2016 12:59 UNIT: A U ROOM: [facility] STUDY DESCRIPTION: CT Angio Chest for PE Attending Physician: Jalen Garay M.D. Ordering Physician: Ishaan Robertson M.D. Primary Care Physician: Jalen Garay M.D. MEDICAL IMAGING REPORT This report is preliminary unless electronic signature is present EXAM Chest CT angiogram with contrast, 12/21/2016 PROCEDURE Axial contrast-enhanced chest CT angiogram with three-dimensional reformats. CLINICAL HISTORY Right back pain and dyspnea for 1 day, pain worse with inspiration. This CT exam was performed with one or more of the following radiation dose reduction techniques: automatic exposure control, adjustment of mA and/or kV according to patient size, and iterative reconstruction. FINDINGS There is some coarse right lower lobe infiltrate and/or atelectasis and coarse left upper lobe infiltrate and/or atelectasis. There is no effusion or pneumothorax or suspicious nodule and no mediastinal mass or adenopathy. While the thoracic aorta is normal, there is definite pulmonary embolism in several right lower lobe pulmonary arterial branches, overall embolus burden small to moderate. No right upper lobe or left lung pulmonary embolism is seen. IMPRESSION 1. The study is positive for [id number] embolus burden in the right lower lobe pulmonary arterial branches while the right upper love and left lung branches are normal. 2. There is also left upper lobe and right posterolateral basilar infiltrate and/or atelectasis but no effusion or pneumothorax. Dictated by... [facility] A Service of [facility] & [facility] RADIOLOGY TEXT RESULTS PATIENT: JOSE LOPEZ LOCATION: [facility] 306-01 : [birth year] UNIT #: [id number] AGE: [address]: Jalen Garay MD SEX: F ORDER DR: Janes Foss M.D. THIS IS AN ELECTRONICALLY VERIFIED REPORT Janes Foss M.D. at 12/22/2016 10:55 AM IRA/hunter TD: 12/21/2016 23:16 JOB #: [id number] MEDICAL IMAGING REPORT Page 1 of 1 COPY
[~2016-12-21 10:43] MED LIST changes: -XARELTO10 MG; -XARELTO20 MG PO
[2016-12-21 11:23] LABS: BASOPHIL# 0.1 X10e3 (0-0.3); BASOPHIL% 0.9 % (0-2.5); EOSINOPHIL# 0.2 X10e3 (0-0.7); HEMATOCRIT 35.7 % (35.0-45.0); HEMOGLOBIN 11.8 gm/dL (12.0-16.0); LYMPHOCYTE# 1.1 X10e3 (1.0-3.5); LYMPHOCYTE% 10.2 % (17.0-45.0); MEAN CELL VOLUME 94.5 FL (83-96); MEAN CORPUSCULAR HEMOGLOBIN 31.3 PG (28-34); MEAN CORPUSCULAR HGB CONC 33.1 g/dL (30-36); MEAN PLATELET VOLUME 8.6 FL (6.5-11.5); MONOCYTE# 1.1 X10e3 (0-1.0); MONOCYTE% 9.9 % (3.0-12.0); NEUTROPHIL# 8.3 X10e3 (1.5-7.1); PLATELET COUNT 253 X10e3 (140-420); RED BLOOD COUNT 3.77 X10e (3.90-5.30); RED CELL DISTRIBUTION WIDTH 14.3 % (11.0-15.5); WHITE BLOOD COUNT 10.8 X10e3 (4.0-10.5)
[2016-12-21 11:27] LABS: DIFF IND NO
[2016-12-21 11:51] LABS: ALBUMIN SERUM 3.5 g/dL (3.5-5.0); BILIRUBIN, DIRECT 0.1 mg/dL (0.0-0.2); BILIRUBIN,INDIRECT 1.2 mg/dL (0.0-0.9); BILIRUBIN,TOTAL 1.3 mg/dL (0.2-2.0); GLOM FILT RATE Estimated 57.5 mL/min (>60); POTASSIUM 4.3 mmol/L (3.5-5.1); PROTEIN TOTAL SERUM 6.7 g/dL (6.0-8.3)
[2016-12-21 12:20] LABS: POC - CKMB <1.0 ng/mL (0.0-7.9); POC - TROPONIN <0.05 ng/mL (<=0.05)
[2016-12-21 13:51] LABS: POC - CKMB <1.0 ng/mL (0.0-7.9); POC - TROPONIN <0.05 ng/mL (<=0.05)
[2016-12-23 05:58] LABS: HEMATOCRIT 31.6 % (35.0-45.0); HEMOGLOBIN 10.5 gm/dL (12.0-16.0); MEAN CELL VOLUME 95.4 FL (83-96); MEAN CORPUSCULAR HEMOGLOBIN 31.6 PG (28-34); MEAN CORPUSCULAR HGB CONC 33.1 g/dL (30-36); MEAN PLATELET VOLUME 9.4 FL (6.5-11.5); RED BLOOD COUNT 3.31 X10e (3.90-5.30); RED CELL DISTRIBUTION WIDTH 14.3 % (11.0-15.5); WHITE BLOOD COUNT 6.2 X10e3 (4.0-10.5)
[2016-12-23 07:02] LABS: BUN/CREATININE RATIO 12.5; CALCIUM SERUM 8.3 mg/dL (8.4-10.2); CREATININE SERUM 0.8 mg/dL (0.6-1.4); GLOM FILT RATE Estimated 75.3 mL/min (>60); POTASSIUM 4.5 mmol/L (3.5-5.1)
[2016-12-24 05:40] LABS: BASOPHIL% 0.7 % (0-2.5); EOSINOPHIL# 0.3 X10e3 (0-0.7); HEMATOCRIT 32.2 % (35.0-45.0); HEMOGLOBIN 10.6 gm/dL (12.0-16.0); LYMPHOCYTE# 1.5 X10e3 (1.0-3.5); LYMPHOCYTE% 25.5 % (17.0-45.0); MEAN CELL VOLUME 94.4 FL (83-96); MEAN CORPUSCULAR HEMOGLOBIN 31.1 PG (28-34); MEAN PLATELET VOLUME 9.4 FL (6.5-11.5); MONOCYTE# 0.6 X10e3 (0-1.0); MONOCYTE% 9.7 % (3.0-12.0); NEUTROPHIL# 3.4 X10e3 (1.5-7.1); NEUTROPHIL% 58.1 % (40-75); PLATELET COUNT 198 X10e3 (140-420); RED BLOOD COUNT 3.41 X10e (3.90-5.30); RED CELL DISTRIBUTION WIDTH 14.1 % (11.0-15.5); WHITE BLOOD COUNT 5.8 X10e3 (4.0-10.5)
[2016-12-24 05:47] LABS: DIFF IND NO
[2016-12-24 06:28] LABS: BUN/CREATININE RATIO 13.75; CALCIUM SERUM 8.3 mg/dL (8.4-10.2); CREATININE SERUM 0.8 mg/dL (0.6-1.4); GLOM FILT RATE Estimated 75.3 mL/min (>60); POTASSIUM 4.5 mmol/L (3.5-5.1)
[2016-12-25 05:56] LABS: HEMATOCRIT 30.2 % (35.0-45.0); HEMOGLOBIN 10.3 gm/dL (12.0-16.0); MEAN CELL VOLUME 92.9 FL (83-96); MEAN CORPUSCULAR HEMOGLOBIN 31.6 PG (28-34); MEAN PLATELET VOLUME 8.6 FL (6.5-11.5); RED BLOOD COUNT 3.25 X10e (3.90-5.30); RED CELL DISTRIBUTION WIDTH 14.1 % (11.0-15.5); WHITE BLOOD COUNT 4.8 X10e3 (4.0-10.5)
[2016-12-25] MEDS ORDERED: XARELTO20 MG PO (07:52)
[2016-12-25] MEDS ORDERED: XARELTO10 MG (07:53)
== END 2016-12-25 11:56 | disposition home or self-care (01) | DRG 176 ==
LOC: CED 10:43 → CEDOF 14:20 → CED 14:32 → C3A PCU 14:32 → CEDOF 14:32 → C3A PCU 15:15 → CEDOF 15:15 → C3A PCU 15:15
PROVIDERS: Emergency Medicine; Internal Medicine
PROC: B32TYZZ Computerized Tomography (CT Scan) of Left Pulmonary Artery using Other Contrast (ICD-10-PCS; 2016-12-21)
PROC: B32SYZZ Computerized Tomography (CT Scan) of Right Pulmonary Artery using Other Contrast (ICD-10-PCS; 2016-12-21)
PROC: B24BZZZ Ultrasonography of Heart with Aorta (ICD-10-PCS; principal; 2016-12-22)
DX: I26.99 Other pulmonary embolism without acute cor pulmonale (principal); N18.3 Chronic kidney disease, stage 3 (moderate); I07.1 Rheumatic tricuspid insufficiency; I12.9 Hypertensive chronic kidney disease with stage 1 through stage 4 chronic kidney disease, or unspecified chronic kidney disease; D64.9 Anemia, unspecified; M81.0 Age-related osteoporosis without current pathological fracture; F32.9 Major depressive disorder, single episode, unspecified; E78.5 Hyperlipidemia, unspecified; I25.10 Atherosclerotic heart disease of native coronary artery without angina pectoris; Z90.710 Acquired absence of both cervix and uterus; Z87.01 Personal history of pneumonia (recurrent); Z88.6 Allergy status to analgesic agent; Z88.0 Allergy status to penicillin
CPT/HCPCS: 36415; 71020; 71275; 80048; 80076; 82553; 84484; 85025; 85027; 93005; 93306; 93970; 94760; 96360; 99285; J1650; Q9967

== ENCOUNTER → 2017-01-28 | Outpatient (CLI) | payer OTHER ==
[~2017-01-28] MED LIST changes: +XARELTO10 MG; +XARELTO20 MG PO
--- NOTE | ~2017-01-28 | CT4 ---
[facility] A Service of [facility] RADIOLOGY TEXT RESULTS PATIENT: JOSE LOPEZ LOCATION: [facility] : [birth year] UNIT #: [id number] AGE: [address]: Jalen Garay MD SEX: F ORDER DR: [id number] [facility] [address] [facility]. [place], [place] [address] [id number] O MR#: [id number] Acc #: [id number] NAME: JOSE LOPEZ : 1945 SEX: F STUDY DATE/TIME: 01/28/2017 14:06 UNIT: [facility]AT ROOM: STUDY DESCRIPTION: CT Abd and Pelv Wo Cont Attending Physician: Jalen Garay M.D. Referring Physician: Jalen Garay M.D. Ordering Physician: Jalen Garay M.D. Primary Care Physician: Jalen Garay M.D. MEDICAL IMAGING REPORT This report is preliminary unless electronic signature is present EXAM CT abdomen and pelvis INDICATION Hematuria. Microscopic hematuria for [address] of the abdomen and pelvis without contrast. Coronal and sagittal reconstructions were obtained. This CT exam was performed with one or more of the following radiation dose reduction techniques: Automatic exposure control, adjustment of mA and/or kV according to patient size, and iterative reconstruction. COMPARISON CT abdomen and pelvis dated 12/02/2016. FINDINGS ABDOMEN: The kidneys are atrophic. There is no hydronephrosis. No urinary calculi. There is a cyst in the medial segment, left hepatic lobe. Gallbladder is not distended. Pancreas, spleen and adrenal glands are within normal limits. The gallbladder is not distended. The bowel is not dilated. There is left-sided colonic diverticula. No diverticulitis. The abdominal aorta is normal in caliber. There is a small umbilical hernia. PELVIS: Bladder is unremarkable. The uterus and ovaries are presumed surgically absent. No enlarged pelvic or inguinal lymph nodes. [facility] A Service of [facility] RADIOLOGY TEXT RESULTS PATIENT: JOSE LOPEZ LOCATION: [facility] : [birth year] UNIT #: [id number] AGE: [address]: Jalen Garay MD SEX: F ORDER DR: The spleen and C10 or mass effect of positioning is 6 cm, 3 joules with and there is a acute to subacute fracture involving the inferior endplate of L2. This results in approximately 10% anterior and posterior height loss. The fracture involves both the anterior and middle column of the vertebral body. There is approximately 3 mm of retropulsion. IMPRESSION 1. Generalized renal atrophy. No urinary calculi or hydronephrosis. 2. Development of a acute to subacute compression fracture of the inferior endplate of L2. This results in mild vertebral body height loss and mild retropulsion. Dictated by... Dennys Slater M.D. THIS IS AN ELECTRONICALLY VERIFIED REPORT Dennys Slater M.D. at 01/29/2017 10:27 AM GALDINO/nola TD: 01/29/2017 09:18 JOB #: [id number] MEDICAL IMAGING REPORT Page 1 of 1 COPY
== END | disposition home or self-care (01) ==
LOC: CCAT 13:30
DX: R31.1 Benign essential microscopic hematuria (principal); N26.1 Atrophy of kidney (terminal); S32.029A Unspecified fracture of second lumbar vertebra, initial encounter for closed fracture
CPT/HCPCS: 74176